=== PATIENT | male | born 1980 | race Asian ===

== ENCOUNTER 2019-12-24 14:30 | Emergency (ER) | payer OTHER ==
[2019-12-24] MEDS ORDERED: METOCLOPRAMIDE HCL INJECTION 10 MG/2 ML VIAL IVPUSH ONE (14:54)
[2019-12-24] MEDS ORDERED: SODIUM CHLORIDE 0.9% 500 ML INFUS.BAG IV ONE (14:55)
[2019-12-24] MEDS ORDERED: METOCLOPRAMIDE HCL INJECTION 10 MG/2 ML VIAL ONE (15:04)
[2019-12-24 15:06] VITALS: BP 120/89; PULSE 73; TEMP 98.1; BMI 23.3
--- NOTE | 2019-12-24 15:10 | PDOC ---
Attending Attestation - Resident Resident Name: Miesha Del Realhan - ED Attending Attestation I have performed the following: I have examined & evaluated the patient, The case was reviewed & discussed with the resident, I agree w/resident's findings & plan, Exceptions are as noted - HPI HPI: 12/24/19 15:05 39yo male with no pmhx with acute onset of dizziness and n/v today. Pt states he played 5 hours of [employer] tuesday assoc with etoh use and then yesterday also was drinking alcohol in the afternoon. Only had 2 drinks yesterday. States he woke up with vertigo this AM - went to urgent care and had n/v when he turned his head to the Right. Pt states n/v improved currently. Pt states he feels the vertigo worsens when he sits up or turns his head side to side. No prior episodes. Pt states his mother suffers from vertigo. Denies recent uri symptoms. Denies f/c. No other complaints. - Physicial Exam PE: 12/24/19 15:08 Gen: [id number], nad heent: PERRL, EOMI, no nystagmus, nares patent, TM intact, posterior pharynx clear, mmm, tm intact b/l-no effusions/erythema/bulging, no cerumen, mild erythema R ear canal - uses qtips-local irritation, no signs of otitis externa, no ear pain neck: supple heart: +s1s2 reg lungs: cta b/l abd: soft, nt/nd +bs ext: no c/c/e, 2+pulses in radial and pedal pulses neuro: cn ii-xii grossly intact, no focal deficits, muscle strength 5/5 UE and LE, sensation intact 12/24/19 15:12 - Medical Decision Making 12/24/19 15:09 a/p: 39yo male biba from urgent care for eval of dizziness/n/v -suspect bppv -will send labs -ekg -reglan, ivf, meclizine -will need ent follow up -neuro intact -no head trauma 12/24/19 15:13 local irritation of the R external ear canal 12/24/19 15:46 labs reviewed and stable 12/24/19 15:52 pt feeling much better no longer dizzy able to sit up on the stretcher, able to move his head side to side stable for dc to home with meclizine Heart Score/ECG Review - ECG Intrepretation Comment:: 12/24/19 15:22 sinus at 67, nl axis, nl interval, no acute st/t wave findings Discharge - Discharge Information Problems reviewed: Yes Clinical Impression/Diagnosis: Vertigo Condition: Stable Disposition: HOME - Admission No - Follow up/Referral Referrals: Hollis Tim MD [Staff Physician] - Quirino Glover MD [Staff Physician] - - Patient Discharge Instructions Patient Printed Discharge Instructions: DI for Vertigo Additional Instructions: Please take all medications as prescribed. Please drink plenty of fluids. Please make an appointment to see the ENT physician for this week for follow up. Please take the meclizine every 8 hours as needed for dizziness. Please also follow up with your PMD. Please return to the ER with any further concerns or complaints. - Post Discharge Activity
--- NOTE | 2019-12-24 15:15 | PDOC ---
History of Present Illness - General Chief Complaint: Nausea/Vomiting Stated Complaint: VERTIGO WITH VOMITING Time Seen by Provider: 12/24/19 14:41 - History of Present Illness Initial Comments: 12/24/19 15:05 39yo healthy male with no reported PMH presents with vertigo and vomiting since this morning. States he woke up, got out of bed, felt the room spinning, and sat back down. When he kept his head straight, the symptoms mostly resolved. He lay down for a while, but the symptoms returned when he got up. He ate rice porridge and vomitted it up. His gave him a gatorade equivalent and took him to urgent care. At urgent care, the provider turned his head to the side, and he vomitted, so she sent him to the ER. Denies focal weakness, chest pain, headache, ear pain or tinnitus. Had two drinks yesterday. No recent illness. States his mom has vertigo. ROS GENERAL/CONSTITUTIONAL: No fever or chills. generalized weakness. HEAD, EYES, EARS, NOSE AND THROAT: No change in vision. No ear pain or discharge. No sore throat. CARDIOVASCULAR: No chest pain or shortness of breath RESPIRATORY: No cough, wheezing, or hemoptysis. GASTROINTESTINAL: nausea, vomiting. No diarrhea or constipation. GENITOURINARY: No dysuria, frequency, or change in urination. MUSCULOSKELETAL: No joint or muscle swelling or pain. No neck or back pain. SKIN: No rash NEUROLOGIC: vertigo. No headache, loss of consciousness, or change in strength/sensation. ENDOCRINE: No increased thirst. No abnormal weight change HEMATOLOGIC/LYMPHATIC: No anemia, easy bleeding, or history of blood clots. ALLERGIC/IMMUNOLOGIC: No hives or skin allergy. PE GENERAL: Awake, alert, and fully oriented, in no acute distress HEAD: No signs of trauma, normocephalic, atraumatic EYES: PERRLA, EOMI, sclera anicteric, conjunctiva clear, no nystagmus at rest or with change in position that reproduces symptoms ENT: Auricles normal inspection, hearing grossly normal, mild erythema in external auditory canal b/l R>L (patient reports q-tip use), TMs clear and not bulging, nares patent, oropharynx clear without exudates. Moist mucosa NECK: Normal ROM, supple, no lymphadenopathy, JVD, or masses LUNGS: No distress, speaks full sentences, clear to auscultation bilaterally HEART: Regular rate and rhythm, normal S1 and S2, no murmurs, rubs or gallops, peripheral pulses normal and equal bilaterally. ABDOMEN: Soft, nontender, normoactive bowel sounds. No guarding, no rebound. No masses EXTREMITIES : Normal inspection, Normal range of motion, no edema. No clubbing or cyanosis. NEUROLOGICAL: Cranial nerves II through XII grossly intact. Normal speech, no focal sensorimotor deficits SKIN: Warm, Dry, normal turgor, no rashes or lesions noted Vital Signs Temp Pulse Resp BP Pulse Ox 98.1 F 73 15 120/89 99 12/24/19 14:41 12/24/19 14:41 12/24/19 14:41 12/24/19 14:41 12/24/19 14:41 39yo healthy male with no reported PMH presents with vertigo and vomiting since this morning. Story and exam not concerning for central pathology. Given lack of ear symptoms, most likely BPPV. -EKG -CBC, CMP -Reglan 10 IV, 1000ml NS 12/24/19 16:53 EKG: NSR, rate 67, normal axis and intervals, no ischemic changes Labs unremarkable. Na and Ca mildly low Patient reports resolution of symptoms. DC home with meclizine and ENT f/u Past History - Medical History Allergies/Adverse Reactions: Allergies Allergy/AdvReac Type Severity Reaction Status Date / Time No Known Allergies Allergy Verified 12/24/19 14:54 Home Medications: Ambulatory Orders Meclizine HCl 25 mg PO TID PRN #9 tablet 12/24/19 COPD: No - Psycho-Social/Smoking History Smoking History: Never smoked - Substance Abuse Hx (Audit-C & DAST Scrn) How often the patient has a drink containing alcohol: Monthly or less How often the patient has six or more drinks on one occasion: Less than monthly Score: In Men: 4 or > Positive; In Women: 3 or > Positive: 2 Screen Result (Pos requires Nsg. Audit-10AR): Negative In the last yr the pt used illegal drug/Rx for NonMed reason: No Score: Yes response is considered Positive: 0 Screen Result (Positive result requires Nsg. DAST-10): Negative *Physical Exam - Vital Signs Last Vital Signs Temp Pulse Resp BP Pulse Ox 98.1 F 73 15 120/89 99 12/24/19 14:41 12/24/19 14:41 12/24/19 14:41 12/24/19 14:41 12/24/19 14:41 ED Treatment Course - LABORATORY CBC & Chemistry Diagram: 12/24/19 15:04 12/24/19 15:04 Discharge - Discharge Information Problems reviewed: Yes Clinical Impression/Diagnosis: Vertigo Condition: Stable Disposition: HOME - Additional Discharge Information Prescriptions: Meclizine HCl 25 mg PO TID PRN #9 tablet PRN Reason: Vertigo - Follow up/Referral Referrals: Quirino Glover MD [Staff Physician] - Hollis Tim MD [Staff Physician] - - Patient Discharge Instructions Patient Printed Discharge Instructions: DI for Vertigo Additional Instructions: Please take all medications as prescribed. Please drink plenty of fluids. Please make an appointment to see the ENT physician for this week for follow up. Please take the meclizine every 8 hours as needed for dizziness. Please also follow up with your PMD. Please return to the ER with any further concerns or complaints. - Post Discharge Activity
[2019-12-24 15:35] LABS: BASO % 0.2 % (0-2.0); EOS % 0.4 % (0-4.5); HEMATOCRIT 46.6 % (35.4-49); HEMOGLOBIN 15.8 GM/dl (11.7-16.9); MCH 30.2 pg (25.7-33.7); MCHC 33.8 g/dl (32.0-35.9); MEAN CELL VOLUME 89.5 fl (80-96); MEAN PLT VOLUME 7.8 fl (7.5-11.1); NEUT % 80.4 % (42.8-82.8); PLATELET COUNT 271 K/MM3 (134-434); RBC 5.21 M/mm3 (4.00-5.60); RDW 12.5 % (11.9-15.9); WHITE BLOOD COUNT 8.9 K/mm3 (4.0-10.8)
[2019-12-24 15:41] LABS: BILIRUBIN,TOTAL 0.7 mg/dl (0.2-1); CALCIUM 8.3 mg/dl (8.5-10); CREATININE 0.9 mg/dl (0.55-1.3); TOT PROT 6.6 g/dl (6.4-8.2)
[2019-12-24] MEDS ORDERED: MECLIZINE HCL 25 MG TABLET (FP) PO ONE (15:48)
--- NOTE | 2019-12-25 10:36 | EKG ---
Test Reason : Blood Pressure : / mmHG Vent. Rate : 067 BPM Atrial Rate : 067 BPM P-R Int : 146 ms QRS Dur : 084 ms QT Int : 400 ms P-R-T Axes : 028 029 007 degrees QTc Int : 422 ms NORMAL SINUS RHYTHM NORMAL ECG NO PREVIOUS ECGS AVAILABLE Confirmed by MD ANMOL, ALANNAH ([id number]) on 12/25/2019 10:36:23 AM Referred By: Confirmed By:ALANNAH COREA MD
== END 2019-12-24 16:14 | disposition home or self-care (01) ==
LOC: FER 14:30
PROC: 3E033GC Introduction of Other Therapeutic Substance into Peripheral Vein, Percutaneous Approach (ICD-10-PCS; principal; 2019-12-24)
DX: H81.10 Benign paroxysmal vertigo, unspecified ear (principal)
CPT/HCPCS: 36415; 80053; 85025; 93005; 99284-25